=== PATIENT | male | born 1995 | race Caucasian/White ===

== ENCOUNTER 2025-03-27 16:56 | Emergency (ER) | payer OTHER ==
[2025-03-27] MEDS ORDERED: SODIUM CHLORIDE 0.9% 1,000 ML IV ONE (17:00)
[2025-03-27 17:17] LABS: BASO # 0.1 10*3/uL (0.0-0.1); BASO % 0.7 % (0.0-1.0); EOS # 0.0 10*3/uL (0.0-0.4); EOS % 0.4 % (1.0-4.0); MEAN CELL VOLUME 90.8 fl (80.0-94.0); MEAN CORPUSCULAR HGB 30.8 pg (27.0-31.0); MEAN PLATELET VOLUME 8.5 fl (9.6-12.3); MONO # 0.5 10*3/uL (0.1-1.0); MONO % 6.0 % (3.0-9.0); NEUT # 4.6 10*3/uL (2.3-7.9); NEUT % 55.3 % (47.0-73.0); NUCLEATED RED BLOOD CELL 0.0 % (0.0-0.0); NUCLEATED RED BLOOD CELL 0.0 10*3/uL (0.0-0.0); PLATELET COUNT AUTOMATED 279 10*3/uL (130-400); RED CELL DISTRI WIDTH 13.1 % (0-14.5)
[2025-03-27 17:33] LABS: BUN 7 mg/dl (9-23)
[2025-03-27] MEDS ORDERED: POTASSIUM CHLORIDE 20 MEQ TAB PO ONE (17:45)
[2025-03-27] MEDS ORDERED: PREDNISONE20 M1 PO (18:10)
[2025-03-27] MEDS ORDERED: VENT7GM INH (18:10)
== END 2025-03-27 18:40 | disposition home or self-care (01) ==
LOC: ED 16:56
PROVIDERS: Emergency Medicine
DX: R06.02 Shortness of breath (principal)